=== PATIENT | female | born 1960 | race Two or more races ===

== ENCOUNTER 2018-11-07 10:49 | Emergency (ER) | payer BC ==
[~2018-11-07] VITALS: Ht 170.2 cm; Wt 59.9 kg
[2018-11-07 10:59] VITALS: BP 142/67
[2018-11-07] MEDS ORDERED: ACETAMINOPHEN 325 MG TABLET PO ONE (14:00)
[2018-11-07] MEDS ORDERED: ACETAMINOPHEN 325 MG TABLET ONE (14:04)
== END 2018-11-07 15:52 | disposition home or self-care (01) ==
LOC: ER 10:51
DX: J20.8 Acute bronchitis due to other specified organisms (principal); R94.31 Abnormal electrocardiogram [ECG] [EKG]
CPT/HCPCS: 71045-TC

== ENCOUNTER 2018-12-24 04:43 | Emergency (ER) | payer BC ==
[~2018-12-24] VITALS: Ht 154.9 cm; Wt 59.0 kg
--- NOTE | 2018-12-24 05:30 | NUR ---
BIBSELF C/O URI SYMPTOMS X2 WEEKS +NONPRODUCTIVE COUGH, +SORE THROAT +NASAL CONGESTION, +L EAR ACHE, -FEVER
--- NOTE | 2018-12-24 07:07 | NUR ---
Patient discharged to home in stable condition. Rx and Written and verbal after care instructions given. Patient verbalizes understanding of instruction.
[2018-12-24 07:10] VITALS: BP 158/79
== END 2018-12-24 07:10 | disposition home or self-care (01) ==
LOC: ER 04:45
DX: J06.9 Acute upper respiratory infection, unspecified (principal)
CPT/HCPCS: 71045-TC